=== PATIENT | female | born 1965 | race Two or more races ===

== ENCOUNTER 2021-07-23 06:20 | Day surgery (SDC) | payer OTHER, MEDICAID ==
[~2021-07-23] VITALS: Ht 157.5 cm; Wt 77.0 kg
[2021-07-23] VITALS (7 sets, daily range): BP systolic 137–152; BP diastolic 74–86
[~2021-07-23 06:20] MED LIST: LIDOcaine 1% 30ml preserv. free vial SQ STA
[2021-07-23] MEDS ORDERED: albumin 25% 100mL bottle x 1 IV PRN (06:55)
== END 2021-07-23 10:00 | disposition home or self-care (01) ==
LOC: SSTAY O 06:20
PROVIDERS: ATTEND Radiology Diagnostic Radiology
DX: R18.8 Other ascites (principal); R14.0 Abdominal distension (gaseous); E11.22 Type 2 diabetes mellitus with diabetic chronic kidney disease; N18.6 End stage renal disease; I50.9 Heart failure, unspecified; I25.2 Old myocardial infarction; K74.69 Other cirrhosis of liver; Z99.2 Dependence on renal dialysis; Z86.718 Personal history of other venous thrombosis and embolism; Z95.1 Presence of aortocoronary bypass graft; Z98.890 Other specified postprocedural states; Z87.891 Personal history of nicotine dependence; Z83.3 Family history of diabetes mellitus; Z82.61 Family history of arthritis; Z82.49 Family history of ischemic heart disease and other diseases of the circulatory system
CPT/HCPCS: 49083; J2001; P9047

== ENCOUNTER 2021-08-13 06:11 | Day surgery (SDC) | payer MEDICARE, MEDICAID ==
[~2021-08-13] VITALS: Ht 157.5 cm; Wt 76.0 kg
[2021-08-13] VITALS (8 sets, daily range): BP systolic 105–143; BP diastolic 59–83
[2021-08-13] MEDS ORDERED: LIDOcaine 1% 30ml preserv. free vial SQ STA (06:27)
[2021-08-13] MEDS ORDERED: albumin 25% 100mL bottle x 1 IV PRN (06:35)
[2021-08-13] MEDS ORDERED: CALC668T PO (07:29)
[2021-08-13] MEDS ORDERED: METO-539 PO (07:29)
[2021-08-13] MEDS ORDERED: ACET325T55 PO (07:29)
[2021-08-13] MEDS ORDERED: Vitamin D2 PO (07:29)
[2021-08-13] MEDS ORDERED: ALPR-624 PO (07:29)
[2021-08-13] MEDS ORDERED: SENN-263 PO (07:29)
[2021-08-13] MEDS ORDERED: LACT10SO7 PO (07:29)
[2021-08-13] MEDS ORDERED: DOCU-148 PO (07:29)
[2021-08-13] MEDS ORDERED: INSU100V9 SQ (07:29)
[2021-08-13] MEDS ORDERED: MIDO10TA PO (07:29)
[2021-08-13] MEDS ORDERED: TRAZ-256 PO (07:29)
[2021-08-13] MEDS ORDERED: AMIO200T62 PO (07:29)
[2021-08-13] MEDS ORDERED: APIX5TAB3 PO (07:29)
--- NOTE | 2021-08-13 11:45 | NUR ---
Received call from [facility] about pt in Wheelchair and that she was vomiting while waiting for transport. Attempted to contact [facility] without success. Pt taken to ER for care. Addendum: 08/13/21 at 1256 by Manuel Pennington RN Amended: Links added.
== END 2021-08-13 11:05 | disposition home or self-care (01) ==
LOC: SSTAY O 06:11
PROVIDERS: ATTEND Preventive Medicine Aerospace Medicine
DX: R18.8 Other ascites (principal); R14.0 Abdominal distension (gaseous); K74.60 Unspecified cirrhosis of liver; E11.22 Type 2 diabetes mellitus with diabetic chronic kidney disease; N18.6 End stage renal disease; I50.9 Heart failure, unspecified; I25.2 Old myocardial infarction; Z95.1 Presence of aortocoronary bypass graft; Z98.890 Other specified postprocedural states; Z87.891 Personal history of nicotine dependence; Z99.2 Dependence on renal dialysis
CPT/HCPCS: 49083; J3490; P9047

== ENCOUNTER 2021-08-13 11:41 | Emergency (ER) | payer MEDICARE, MEDICAID ==
[~2021-08-13] VITALS: Ht 157.5 cm; Wt 76.4 kg
[~2021-08-13 11:41] MED LIST changes: +ACET325T55 PO; +ALPR-624 PO; +AMIO200T62 PO; +APIX5TAB3 PO; +CALC668T PO; +DOCU-148 PO; +INSU100V9 SQ; +LACT10SO7 PO; -LIDOcaine 1% 30ml preserv. free vial SQ STA; +METO-539 PO; +MIDO10TA PO; +SENN-263 PO; +TRAZ-256 PO; +Vitamin D2 PO
[2021-08-13 11:53] VITALS: BP 111/60
--- NOTE | 2021-08-13 12:50 | NUR ---
Pt came to ER from her clinic appointment this AM. She had paracentesis (6L) this am. Now c/o N/V.
[2021-08-13] MEDS ORDERED: ondansetron 4mg rapidly disintigrating tab PO ONE (13:00)
[2021-08-13 13:02] LABS: BASOPHILS # (AUTO) 0.1 X10'3 (0-0.2); BASOPHILS % (AUTO) 1.1 % (0-1); EOSINOPHILS # (AUTO) 0.1 X10'3 (0-0.9); EOSINOPHILS % (AUTO) 1.1 % (0-6); HEMATOCRIT 33.7 % (35.0-45.0); HEMOGLOBIN 10.8 g/dl (12.0-16.0); LYMPHOCYTES # (AUTO) 0.5 X10'3 (1.1-4.8); LYMPHOCYTES % (AUTO) 7.9 % (21-51); MEAN CORPUSCULAR HEMOGLOBIN 28.8 PG (27.0-31.0); MEAN CORPUSCULAR HGB CONC 32.1 g/dL (33.0-36.5); MEAN CORPUSCULAR VOLUME 89.7 FL (78-98); MEAN PLATELET VOLUME 10.1 FL (7.4-10.4); MONOCYTES # (AUTO) 0.4 X10'3 (0-0.9); MONOCYTES % (AUTO) 6.7 % (2-12); NEUTROPHILS # (AUTO) 5.2 X10'3 (1.8-7.7); NEUTROPHILS % (AUTO) 83.2 % (42-75); PLATELET COUNT 185 X10'3 (140-440); RED BLOOD COUNT 3.76 X10'6 (4.20-5.60); RED CELL DISTRIBUTION WIDTH 14.9 % (11.5-14.5); WHITE BLOOD COUNT 6.3 X10'3 (4.5-11.0)
[2021-08-13 13:16] LABS: ALANINE AMINOTRANSFERASE 29 U/L (12-78); ALBUMIN 3.6 G/DL (3.4-5.0); ALBUMIN/GLOBULIN RATIO 0.8 (1.1-1.5); ALKALINE PHOSPHATASE 321 IU/L (46-116); ANION GAP 20 (8-16); ASPARTATE AMINO TRANSFERASE 19 U/L (10-37); CALCIUM 8.9 MG/DL (8.5-10.1); CHLORIDE 94 MMOL/L (99-107); CREATININE 16.95 MG/DL (0.40-0.90); GLUCOSE 249 MG/DL (70-104); LIPASE 273 U/L (73-393); POTASSIUM 5.8 MMOL/L (3.5-5.1); SODIUM 134 MMOL/L (135-145); TOTAL CARBON DIOXIDE 19.6 MMOL/L (24-32); TOTAL PROTEIN 7.9 G/DL (6.4-8.2); eGFR 2 ML/MIN
[2021-08-13 13:22] LABS: BLOOD UREA NITROGEN 147 MG/DL (7-18); BUN/CREATININE RATIO 8.7 (6.6-38.0)
--- NOTE | 2021-08-13 14:07 | NUR ---
Pt given and understands d/c instructions. Ambulatory with a slow gait. [facility] called for transportation to her dialysis appointment.
== END 2021-08-13 14:10 | disposition home or self-care (01) ==
LOC: ER 11:42
DX: R11.2 Nausea with vomiting, unspecified (principal); Z79.899 Other long term (current) drug therapy; Z99.2 Dependence on renal dialysis
CPT/HCPCS: 36415; 80053; 82948; 83690; 85025; 99283

== ENCOUNTER 2021-09-11 05:53 | Day surgery (SDC) | payer MEDICARE, MEDICAID ==
[2021-09-11] VITALS (9 sets, daily range): BP systolic 54–140; BP diastolic 40–72
[~2021-09-11] VITALS: Ht 157.5 cm; Wt 80.6 kg
[2021-09-11] MEDS ORDERED: albumin 25% 100mL bottle x 1 IV PRN (06:10)
[2021-09-11] MEDS ORDERED: INSU100C10 SQ (06:23)
[2021-09-11] MEDS ORDERED: LIDOcaine 1% 30ml preserv. free vial SQ STA (08:27)
[2021-09-11] MEDS ORDERED: ondansetron/PF 4mg/2ml inj IV ONE (08:35)
--- NOTE | 2021-09-11 09:02 | NUR ---
Pt laying in bed, vs rechecked. Pt requesting to sit up with feet dangling. Denies dizziness, denies sob. Pt was given ice chips and apple juice. Will continue to monitor.
== END 2021-09-11 10:15 | disposition home or self-care (01) ==
LOC: SSTAY O 05:53
PROVIDERS: ATTEND Radiology Vascular & Interventional Radiology
DX: R18.8 Other ascites (principal); R14.0 Abdominal distension (gaseous); K74.60 Unspecified cirrhosis of liver; I50.9 Heart failure, unspecified; E11.22 Type 2 diabetes mellitus with diabetic chronic kidney disease; N18.6 End stage renal disease; I25.2 Old myocardial infarction; Z86.718 Personal history of other venous thrombosis and embolism; Z95.1 Presence of aortocoronary bypass graft; Z98.890 Other specified postprocedural states; Z87.891 Personal history of nicotine dependence; Z79.4 Long term (current) use of insulin; Z79.899 Other long term (current) drug therapy; Z79.01 Long term (current) use of anticoagulants; Z83.3 Family history of diabetes mellitus; Z82.49 Family history of ischemic heart disease and other diseases of the circulatory system; Z82.61 Family history of arthritis
CPT/HCPCS: 36569; 49083; J2405; J3490; P9047

== ENCOUNTER 2021-10-11 06:50 | Day surgery (SDC) | payer MEDICARE, MEDICAID ==
[2021-10-11] VITALS (8 sets, daily range): BP systolic 150–171; BP diastolic 57–123
[~2021-10-11] VITALS: Ht 157.5 cm; Wt 70.9 kg
[~2021-10-11 06:50] MED LIST changes: -ACET325T55 PO; -DOCU-148 PO; +INSU100C10 SQ; -LACT10SO7 PO; -MIDO10TA PO; -SENN-263 PO
[2021-10-11] MEDS ORDERED: albumin 25% 100mL bottle x 1 IV PRN (07:15)
[2021-10-11] MEDS ORDERED: LIDOcaine 1% 30ml preserv. free vial SQ STA (07:20)
== END 2021-10-11 11:05 | disposition home or self-care (01) ==
LOC: SSTAY O 06:50
PROVIDERS: ATTEND Radiology Vascular & Interventional Radiology
DX: R18.8 Other ascites (principal); R14.0 Abdominal distension (gaseous); K74.60 Unspecified cirrhosis of liver; E11.22 Type 2 diabetes mellitus with diabetic chronic kidney disease; N18.6 End stage renal disease; I50.9 Heart failure, unspecified; I25.2 Old myocardial infarction; Z86.718 Personal history of other venous thrombosis and embolism; Z87.891 Personal history of nicotine dependence; Z95.1 Presence of aortocoronary bypass graft
CPT/HCPCS: 49083; J3490; P9047

== ENCOUNTER 2021-12-04 08:10 | Day surgery (SDC) | payer MEDICARE, MEDICAID ==
[~2021-12-04] VITALS: Ht 157.5 cm; Wt 72.0 kg
[2021-12-04] MEDS ORDERED: LIDOcaine 1%/PF 5ML 10 MG/ML VIAL SQ ONE (08:25)
[2021-12-04 08:30] VITALS: BP 134/68
[2021-12-04] MEDS ORDERED: normal saline 1000ml 1,000 ML IV PRN (08:35)
[2021-12-04] MEDS ORDERED: albumin 25% 100mL bottle x 1 IV PRN (08:35)
[2021-12-04] MEDS ORDERED: MIDO10TA PO (08:57)
[2021-12-04 09:31] VITALS: BP 142/68
[2021-12-04 09:46] VITALS: BP 119/58
[2021-12-04 10:00] VITALS: BP 130/60
[2021-12-04 10:01] VITALS: BP 126/62
== END 2021-12-04 10:10 | disposition home or self-care (01) ==
LOC: SSTAY O 08:10
PROVIDERS: ATTEND Radiology Vascular & Interventional Radiology
DX: R18.8 Other ascites (principal); R14.0 Abdominal distension (gaseous); K74.60 Unspecified cirrhosis of liver; I50.9 Heart failure, unspecified; E11.22 Type 2 diabetes mellitus with diabetic chronic kidney disease; N18.6 End stage renal disease; I25.2 Old myocardial infarction; Z86.718 Personal history of other venous thrombosis and embolism; Z99.2 Dependence on renal dialysis; Z95.1 Presence of aortocoronary bypass graft; Z98.890 Other specified postprocedural states; Z87.891 Personal history of nicotine dependence; Z79.4 Long term (current) use of insulin; Z79.899 Other long term (current) drug therapy; Z83.3 Family history of diabetes mellitus; Z82.49 Family history of ischemic heart disease and other diseases of the circulatory system; Z82.61 Family history of arthritis
CPT/HCPCS: 49083; J3490; P9047

== ENCOUNTER 2021-12-25 06:08 | Day surgery (SDC) | payer MEDICARE, MEDICAID ==
[2021-12-25] VITALS (8 sets, daily range): BP systolic 98–139; BP diastolic 35–88
[~2021-12-25] VITALS: Ht 157.5 cm; Wt 79.2 kg
[~2021-12-25 06:08] MED LIST changes: +MIDO10TA PO
[2021-12-25] MEDS ORDERED: albumin 25% 100mL bottle x 1 IV PRN (06:35)
[2021-12-25] MEDS ORDERED: LIDOcaine 1%/PF 5ML 10 MG/ML VIAL SQ ONE (06:55)
--- NOTE | 2021-12-25 07:50 | NUR ---
Pt educated on process of preparation for cardioversion. Educated pt on IV start and blood draw. Pt stated, "Let's just get this done". Discussing pt arrival time and anticipated start time. Pt stood up, undressed and walked out of unit with out his shirt on. Pt stated as leaving, "I am not waiting until 9:30". Pt left his mother, who had accompanied him, sitting in the room. Pt did not return after 20 min. was notified.
== END 2021-12-25 09:35 | disposition home or self-care (01) ==
LOC: SSTAY O 06:08
PROVIDERS: ATTEND Radiology Vascular & Interventional Radiology
DX: R18.8 Other ascites (principal); R14.0 Abdominal distension (gaseous); K74.60 Unspecified cirrhosis of liver; E11.22 Type 2 diabetes mellitus with diabetic chronic kidney disease; N18.6 End stage renal disease; I50.9 Heart failure, unspecified; Z86.718 Personal history of other venous thrombosis and embolism; Z99.2 Dependence on renal dialysis; Z95.1 Presence of aortocoronary bypass graft; Z87.891 Personal history of nicotine dependence
CPT/HCPCS: 49083; J3490; P9047

== ENCOUNTER 2022-01-03 07:28 | Day surgery (SDC) | payer MEDICARE, MEDICAID ==
[~2022-01-03] VITALS: Ht 157.5 cm; Wt 78.6 kg
[2022-01-03] VITALS (9 sets, daily range): BP systolic 102–138; BP diastolic 32–87
[~2022-01-03 07:28] MED LIST changes: +LIDOcaine 1%/PF 5ML 10 MG/ML VIAL IJ ONE; -Vitamin D2 PO
[2022-01-03] MEDS ORDERED: albumin 25% 100mL bottle x 1 IV PRN (07:45)
[2022-01-03] MEDS ORDERED: normal saline 1000ml 1,000 ML IV PRN (07:45)
== END 2022-01-03 11:30 | disposition home or self-care (01) ==
LOC: SSTAY O 07:28
PROVIDERS: ATTEND Radiology Vascular & Interventional Radiology
DX: R18.8 Other ascites (principal); R14.0 Abdominal distension (gaseous); K74.60 Unspecified cirrhosis of liver; I50.9 Heart failure, unspecified; E11.22 Type 2 diabetes mellitus with diabetic chronic kidney disease; N18.6 End stage renal disease; I25.2 Old myocardial infarction; Z86.718 Personal history of other venous thrombosis and embolism; Z99.2 Dependence on renal dialysis; Z95.1 Presence of aortocoronary bypass graft; Z98.890 Other specified postprocedural states; Z87.891 Personal history of nicotine dependence; Z79.899 Other long term (current) drug therapy
CPT/HCPCS: 49083; J3490; P9047

== ENCOUNTER 2022-01-17 07:03 | Day surgery (SDC) | payer MEDICARE, MEDICAID ==
[~2022-01-17] VITALS: Ht 157.5 cm; Wt 78.3 kg
[~2022-01-17 07:03] MED LIST changes: -LIDOcaine 1%/PF 5ML 10 MG/ML VIAL IJ ONE
[2022-01-17 07:25] VITALS: BP 127/78
[2022-01-17] MEDS ORDERED: albumin 25% 100mL bottle x 1 IV PRN (07:30)
[2022-01-17] MEDS ORDERED: SEVE800T7 PO (07:35)
[2022-01-17 09:24] VITALS: BP 129/76
[2022-01-17] MEDS ORDERED: LIDOcaine 1% 30ml preserv. free vial SQ STA (09:24)
[2022-01-17 09:35] VITALS: BP 120/68
[2022-01-17 09:39] VITALS: BP 131/72
[2022-01-17 09:54] VITALS: BP 144/85
[2022-01-17 10:09] VITALS: BP 137/55
== END 2022-01-17 10:23 | disposition home or self-care (01) ==
LOC: SSTAY O 07:03
PROVIDERS: ATTEND Radiology Vascular & Interventional Radiology
DX: R18.8 Other ascites (principal); R14.0 Abdominal distension (gaseous); K74.60 Unspecified cirrhosis of liver; E11.22 Type 2 diabetes mellitus with diabetic chronic kidney disease; N18.6 End stage renal disease; I25.2 Old myocardial infarction; I50.9 Heart failure, unspecified; Z86.718 Personal history of other venous thrombosis and embolism; Z99.2 Dependence on renal dialysis; Z87.891 Personal history of nicotine dependence; Z95.1 Presence of aortocoronary bypass graft; Z98.890 Other specified postprocedural states; Z79.899 Other long term (current) drug therapy; Z79.4 Long term (current) use of insulin; Z82.49 Family history of ischemic heart disease and other diseases of the circulatory system; Z83.3 Family history of diabetes mellitus
CPT/HCPCS: 49083; J3490; P9047

== ENCOUNTER 2022-02-07 07:28 | Day surgery (SDC) | payer MEDICARE, MEDICAID ==
[2022-02-07] VITALS (8 sets, daily range): BP systolic 107–148; BP diastolic 65–92
[~2022-02-07] VITALS: Ht 157.5 cm; Wt 78.0 kg
[~2022-02-07 07:28] MED LIST changes: +LIDOcaine 1%/PF 5ML 10 MG/ML VIAL IJ ONE; +SEVE800T7 PO
[2022-02-07] MEDS ORDERED: albumin 25% 100mL bottle x 1 IV PRN (07:55)
== END 2022-02-07 11:07 | disposition home or self-care (01) ==
LOC: SSTAY O 07:28
PROVIDERS: ATTEND Radiology Vascular & Interventional Radiology
DX: R18.8 Other ascites (principal); K74.60 Unspecified cirrhosis of liver; E11.22 Type 2 diabetes mellitus with diabetic chronic kidney disease; N18.6 End stage renal disease; I50.9 Heart failure, unspecified; I25.2 Old myocardial infarction; Z86.718 Personal history of other venous thrombosis and embolism; Z99.2 Dependence on renal dialysis; Z87.891 Personal history of nicotine dependence; Z95.1 Presence of aortocoronary bypass graft; Z98.890 Other specified postprocedural states; Z79.899 Other long term (current) drug therapy; Z79.4 Long term (current) use of insulin; Z82.49 Family history of ischemic heart disease and other diseases of the circulatory system; Z83.3 Family history of diabetes mellitus
CPT/HCPCS: 49083; J3490; P9047

== ENCOUNTER 2022-02-19 07:58 | Day surgery (SDC) | payer MEDICARE, MEDICAID ==
[~2022-02-19] VITALS: Ht 157.5 cm; Wt 76.4 kg
[~2022-02-19 07:58] MED LIST changes: -ALPR-624 PO; -LIDOcaine 1%/PF 5ML 10 MG/ML VIAL IJ ONE
[2022-02-19] MEDS ORDERED: LIDOcaine 1%/PF 5ML 10 MG/ML VIAL SQ ONE (08:15)
[2022-02-19 08:30] VITALS: BP 123/75
[2022-02-19] MEDS ORDERED: albumin (human) 25% 100 ML IV solution IV PRN (08:45)
[2022-02-19] MEDS ORDERED: ALPR-624 PO (08:49)
[2022-02-19] MEDS ORDERED: albumin 25% 100mL bottle x 1 IV PRN (08:50)
[2022-02-19 09:42] VITALS: BP 131/70
[2022-02-19 10:00] VITALS: BP 118/73
[2022-02-19 10:15] VITALS: BP 113/69
[2022-02-19 10:30] VITALS: BP_SYST 104; BP_SYST 121; BP_DIAS 121; BP_DIAS 53
[2022-02-19 10:45] VITALS: BP 126/82
== END 2022-02-19 11:05 | disposition home or self-care (01) ==
LOC: SSTAY O 07:58
PROVIDERS: ATTEND Radiology Vascular & Interventional Radiology
DX: R18.8 Other ascites (principal); R14.0 Abdominal distension (gaseous); I50.9 Heart failure, unspecified; K74.60 Unspecified cirrhosis of liver; E11.22 Type 2 diabetes mellitus with diabetic chronic kidney disease; N18.6 End stage renal disease; I25.2 Old myocardial infarction; Z86.718 Personal history of other venous thrombosis and embolism; Z95.1 Presence of aortocoronary bypass graft; Z87.891 Personal history of nicotine dependence; Z72.89 Other problems related to lifestyle; Z79.4 Long term (current) use of insulin; Z79.01 Long term (current) use of anticoagulants; Z79.899 Other long term (current) drug therapy; Z82.61 Family history of arthritis; Z83.3 Family history of diabetes mellitus; Z82.49 Family history of ischemic heart disease and other diseases of the circulatory system
CPT/HCPCS: 49083; J3490; P9047; Z7610; A6258

== ENCOUNTER 2022-03-14 06:13 | Day surgery (SDC) | payer MEDICARE, MEDICAID ==
[2022-03-14] VITALS (9 sets, daily range): BP systolic 91–131; BP diastolic 46–69
[~2022-03-14] VITALS: Ht 157.5 cm; Wt 75.0 kg
[~2022-03-14 06:13] MED LIST changes: +ALPR-624 PO
[2022-03-14] MEDS ORDERED: albumin 25% 100mL bottle x 1 IV PRN (06:30)
[2022-03-14] MEDS ORDERED: LIDOcaine 1% 30ml preserv. free vial IJ STA (06:35)
== END 2022-03-14 11:00 | disposition home or self-care (01) ==
LOC: SSTAY O 06:13
PROVIDERS: ATTEND Preventive Medicine Aerospace Medicine
DX: R18.8 Other ascites (principal); K74.60 Unspecified cirrhosis of liver; I50.9 Heart failure, unspecified; N18.6 End stage renal disease; I25.2 Old myocardial infarction; E11.22 Type 2 diabetes mellitus with diabetic chronic kidney disease; Z95.1 Presence of aortocoronary bypass graft; Z87.891 Personal history of nicotine dependence; Z86.718 Personal history of other venous thrombosis and embolism; Z79.4 Long term (current) use of insulin; Z83.3 Family history of diabetes mellitus; Z95.0 Presence of cardiac pacemaker; Z98.890 Other specified postprocedural states
CPT/HCPCS: 49083; J3490; P9047; Z7610; A6258